=== PATIENT | male | born 1970 | race Caucasian/White ===

== ENCOUNTER 2016-09-09 14:07 | Emergency (ER) | payer OTHER ==
[~2016-09-09 14:07] MED LIST: NO HOME MEDICATIONS; NORCO 325 MG-51 TAB PO
[2016-09-09] MEDS ORDERED: SIMVASTATIN40 M1 PO (14:54)
[2016-09-09] MEDS ORDERED: LEXAPRO20 M1 PO (14:54)
== END 2016-09-09 15:41 | disposition home or self-care (01) ==
LOC: ED 14:07
DX: S06.0X0A Concussion without loss of consciousness, initial encounter (principal); W22.8XXA Striking against or struck by other objects, initial encounter; Y93.89 Activity, other specified; Y92.79 Other farm location as the place of occurrence of the external cause
CPT/HCPCS: L0172